=== PATIENT | female | born 1965 | race Caucasian/White ===

== ENCOUNTER 2016-09-30 16:03 | Emergency (ER) | payer SELFPAY ==
[~2016-09-30] VITALS: Ht 162.6 cm; Wt 50.0 kg
[~2016-09-30 16:03] MED LIST: AMOX/K CLAV875 M1 PO; AMOXICILLIN500 MG PO; ANXIETY; BACTRIM DS1 TAB PO; CORTISPORIN OTI10 ML AS; DEPRESSION; FLEXERIL10 MG PO; FLOXIN OTIC0.3 % OT; LORTAB 10-325 M1 TAB PO; NO; NO HOME MEDS; PAROXETINE10 MG PO; PERMETHRIN5 % EX; TORADOL OR; TRAZODONE50 MG PO
[2016-09-30 17:30] VITALS: BP 108/74
== END 2016-09-30 17:30 | disposition home or self-care (01) | DRG 607 ==
LOC: ED 16:03
DX: B85.4 Mixed pediculosis and phthiriasis (principal); F32.9 Major depressive disorder, single episode, unspecified; F41.9 Anxiety disorder, unspecified; J44.9 Chronic obstructive pulmonary disease, unspecified; F43.10 Post-traumatic stress disorder, unspecified; F17.210 Nicotine dependence, cigarettes, uncomplicated

== ENCOUNTER 2018-11-07 09:44 | Emergency (ER) | payer OTHER ==
[~2018-11-07] VITALS: Ht 162.6 cm; Wt 50.9 kg
[2018-11-07] MEDS ORDERED: TRAZODONE50 MG PO (09:58)
[2018-11-07] MEDS ORDERED: SYMBICORT1 AE1 IN (10:13)
[2018-11-07 10:48] LABS: HEMATOCRIT 44.6 % (37.0-47.0); HEMOGLOBIN 14.5 g/dl (12.0-16.0); IMMATURE GRANULOCYTES 0.3 % (0.0-5.0); MEAN CORPUSCULAR HGB 31.9 pG CALC (26.0-32.0); MEAN CORPUSCULAR HGB CONC 32.5 g/L CALC (32.0-36.0); NEUT# 10.01 thou/uL (2.00-7.15); RED BLOOD COUNT 4.55 mill/uL (4.20-5.60)
[2018-11-07 10:51] LABS: URINE BILIRUBIN - DIPSTICK NEGATIVE (NEGATIVE); URINE BLOOD DIPSTICK NEGATIVE (NEGATIVE); URINE COLOR YELLOW; URINE GLUCOSE - DIPSTICK NEGATIVE (NEGATIVE); URINE KETONE NEGATIVE (NEGATIVE); URINE LEUK ESTERASE NEGATIVE (NEGATIVE); URINE NITRITE - DIPSTICK NEGATIVE (Negative); URINE PH 5.5 (4.5-8.0); URINE PROTEIN - DIPSTICK NEGATIVE (NEG-TRACE); URINE SPECIFIC GRAVITY >=1.030; URINE UROBILINOGEN - DIPSTICK 0.2 E.U./dL (0.2)
[2018-11-07 11:09] LABS: ALBUMIN 4.3 g/dL (3.2-5.0); AMYLASE 53 u/l (30-110); ANION GAP 14 (6-22 (CALC)); BILIRUBIN, TOTAL 0.3 mg/dL (0.0-1.4); BUN 15 mg/dL (7-17); BUN/CREATININE RATIO 15 (12-20 (CALC)); CARBON DIOXIDE 26 mmol/l (22-30); CHLORIDE 108 mmol/l (95-108); GFR 58 ML/MIN (>=60 (CALC)); GFR FOR AFR.AMER. > 60 ML/MIN (>=60 (CALC)); POTASSIUM 4.1 mmol/l (3.5-5.1); SGOT/AST 23 u/l (14-36); SODIUM 144 mmol/l (137-146)
[2018-11-07 11:12] LABS: ALKALINE PHOSPHATASE 123 u/l (38-126)
[2018-11-07] MEDS ORDERED: IBUPROFEN600 MG PO (13:45)
[2018-11-07] MEDS ORDERED: AMOXICILLIN500 MG PO (13:45)
[2018-11-07 14:00] VITALS: BP 104/60
== END 2018-11-07 14:00 | disposition home or self-care (01) ==
LOC: ED 09:44
PROVIDERS: Family Medicine
DX: K04.7 Periapical abscess without sinus (principal); R10.11 Right upper quadrant pain; R11.0 Nausea; K08.89 Other specified disorders of teeth and supporting structures; F17.210 Nicotine dependence, cigarettes, uncomplicated; N13.30 Unspecified hydronephrosis

== ENCOUNTER 2022-09-29 11:15 | Emergency (ER) | payer OTHER ==
[2022-09-29] VITALS (19 sets, daily range): BP systolic 98–123; BP diastolic 61–91
[~2022-09-29] VITALS: Ht 162.6 cm; Wt 36.0 kg
[~2022-09-29 11:15] MED LIST changes: +IBUPROFEN600 MG PO; +SYMBICORT1 AE1 IN
[2022-09-29 12:07] LABS: BASO% 0.6 % (0-3); EOS% 3.6 % (0-8); HEMATOCRIT 49.3 % (37.0-47.0); HEMOGLOBIN 15.9 g/dl (12.0-16.0); IMMATURE GRANULOCYTES 0.1 % (0.0-5.0); LYMPH% 20.7 % (15-41); MEAN CORPUSCULAR HGB 31.3 pG CALC (26.0-32.0); MEAN CORPUSCULAR HGB CONC 32.3 g/dL CAL (32.0-36.0); MONO% 5.6 % (2-13); NEUT# 7.4 thou/uL (2.00-7.15); NEUT% 69.4 % (42-76); RED BLOOD COUNT 5.08 mill/uL (4.20-5.60); RED CELL DISTRI WIDTH 13.1 % (11.5-15.5)
[2022-09-29 12:44] LABS: ALBUMIN 4.1 g/dL (3.2-5.0); ALKALINE PHOSPHATASE 122 u/l (38-126); ANION GAP 14 (6-22 (CALC)); BILIRUBIN, TOTAL 0.1 mg/dL (0.02-1.3); BUN 16 mg/dL (7-17); BUN/CREATININE RATIO 20 (12-20 (CALC)); CARBON DIOXIDE 24 mmol/l (22-30); CHLORIDE 106 mmol/l (95-108); CREATININE 0.8 mg/dL (0.5-1.0); GFR FOR AFR.AMER. > 60 ML/MIN (>=60 (CALC)); GFR OTHER RACES > 60 ML/MIN (>=60 (CALC)); POTASSIUM 4.8 mmol/l (3.5-5.1); SGOT/AST 43 u/l (14-36); SODIUM 139 mmol/l (137-146)
[2022-09-29 14:37] LABS: URINE BILIRUBIN - DIPSTICK NEGATIVE (NEGATIVE); URINE BLOOD DIPSTICK NEGATIVE (NEGATIVE); URINE COLOR YELLOW; URINE GLUCOSE - DIPSTICK NEGATIVE (NEGATIVE); URINE KETONE NEGATIVE (NEGATIVE); URINE LEUK ESTERASE NEGATIVE (NEGATIVE); URINE PROTEIN - DIPSTICK NEGATIVE (NEG-TRACE); URINE SPECIFIC GRAVITY 1.025; URINE UROBILINOGEN - DIPSTICK 0.2 E.U./dL (0.2)
[2022-09-29 14:40] LABS: URINE NITRITE - DIPSTICK NEGATIVE (Negative)
[2022-09-29] MEDS ORDERED: MEDDOSEPAK PO ×2 (15:12→16:52)
[2022-09-29] MEDS ORDERED: PROAIR HFA IN ×2 (15:12→16:53)
[2022-09-29] MEDS ORDERED: ZPAK PO ×2 (15:12→16:52)
== END 2022-09-29 16:47 | disposition home or self-care (01) ==
LOC: ED 11:15
PROVIDERS: Nurse Practitioner
DX: J44.1 Chronic obstructive pulmonary disease with (acute) exacerbation (principal); F32.A Depression, unspecified; F41.9 Anxiety disorder, unspecified; F17.200 Nicotine dependence, unspecified, uncomplicated; Z20.822 Contact with and (suspected) exposure to COVID-19

== ENCOUNTER 2024-02-04 14:23 | Observation (INO) | payer OTHER ==
[2024-02-04] VITALS (24 sets, daily range): BP systolic 84–159; BP diastolic 57–103
[~2024-02-04] VITALS: Ht 162.6 cm; Wt 44.3 kg
[~2024-02-04 14:23] MED LIST changes: +MEDDOSEPAK PO; +PROAIR HFA IN; +ZPAK PO
[2024-02-04 15:39] LABS: BASO% 0.5 % (0-3); EOS% 2.9 % (0-8); HEMATOCRIT 46.5 % (37.0-47.0); HEMOGLOBIN 15.5 g/dl (12.0-16.0); IMMATURE GRANULOCYTES 0.2 % (0.0-5.0); LYMPH% 13.4 % (15-41); MEAN CELL VOLUME 94.3 fL CALC (80.0-100.0); MEAN CORPUSCULAR HGB 31.4 pG CALC (26.0-32.0); MEAN CORPUSCULAR HGB CONC 33.3 g/dL CAL (32.0-36.0); MONO% 5.3 % (2-13); NEUT# 14.27 thou/uL (2.00-7.15); NEUT% 77.7 % (42-76); RED BLOOD COUNT 4.93 mill/uL (4.20-5.60); RED CELL DISTRI WIDTH 12.7 % (11.5-15.5)
[2024-02-04 15:42] LABS: URINE BILIRUBIN - DIPSTICK Negative (NEGATIVE); URINE BLOOD DIPSTICK Negative (NEGATIVE); URINE COLOR Yellow; URINE GLUCOSE - DIPSTICK Negative (NEGATIVE); URINE KETONE Negative (NEGATIVE); URINE LEUK ESTERASE Trace (NEGATIVE); URINE NITRITE - DIPSTICK Negative (Negative); URINE PROTEIN - DIPSTICK Negative (NEG-TRACE); URINE SPECIFIC GRAVITY 1.015; URINE UROBILINOGEN - DIPSTICK 0.2 E.U./dL (0.2)
[2024-02-04 15:47] LABS: ALBUMIN 4.2 g/dL (3.2-5.0); ALKALINE PHOSPHATASE 90 u/l (38-126); ANION GAP 9 (6-22 (CALC)); BILIRUBIN, TOTAL 0.7 mg/dL (0.02-1.3); BUN 13 mg/dL (7-17); BUN/CREATININE RATIO 16 (12-20 (CALC)); CARBON DIOXIDE 24 mmol/l (22-30); CHLORIDE 108 mmol/l (95-108); CREATININE 0.8 mg/dL (0.5-1.0); ESTIMATED GFR 86 ML/MIN (>=90 (CALC)); SGOT/AST 30 u/l (14-36); SODIUM 137 mmol/l (137-146); TOTAL PROTEIN 7.3 g/dL (6.3-8.2)
[2024-02-04 15:54] LABS: D-DIMER 0.32 mg/L (0.19-0.60)
[2024-02-04 15:55] LABS: INTERNATIONAL NORMALIZED RATIO 1.2 RATIO (0.7-1.3)
[2024-02-04] MEDS ORDERED: SODIUM CHLORIDE 0.9% 1,000 ML IV ONE (16:30)
[2024-02-04] MEDS ORDERED: MAGNESIUM HYDROXIDE 30 ML UDC PO PRN (16:30)
[2024-02-04] MEDS ORDERED: ALPRAZolam 0.5 MG/TAB PO PRN (16:30)
[2024-02-04] MEDS ORDERED: SODIUM CHLORIDE 0.9% 1,000 ML IV SCH (16:30)
[2024-02-04] MEDS ORDERED: ACETAMINOPHEN 325 MG/TAB PO PRN (16:30)
[2024-02-04] MEDS ORDERED: methylPREDNISolone Sod Succ 40 MG/ML SDV IV SCH (16:31)
[2024-02-04] MEDS ORDERED: LORazepam 2 MG/ML IV ONE (16:35)
[2024-02-04] MEDS ORDERED: VENTOLIN HFA108 MCG IN (16:55)
[2024-02-04] MEDS ORDERED: AZITHROMYCIN 500 MG in SODIUM CHLORIDE 0.9% 250 ML IV SCH (17:00)
[2024-02-04] MEDS ORDERED: cefTRIAXone SODIUM 2 GM in SODIUM CHLORIDE 0.9% 100 ML IV SCH (17:00)
[2024-02-04] MEDS ORDERED: IPRATROPIUM BROMIDE 0.5 MG/2.5 ML SOL IN SCH (19:00)
[2024-02-04] MEDS ORDERED: LEVALBUTEROL HCL 1.25 MG/3 ML VIAL NEB SCH (19:00)
[2024-02-04] MEDS ORDERED: ENOXAPARIN SODIUM 40 MG/0.4 ML SYR SC SCH (21:00)
[2024-02-05] VITALS (25 sets, daily range): BP systolic 87–126; BP diastolic 58–78
[2024-02-05 06:09] LABS: BASO% 0.1 % (0-3); HEMATOCRIT 43.8 % (37.0-47.0); HEMOGLOBIN 14.5 g/dl (12.0-16.0); IMMATURE GRANULOCYTES 0.2 % (0.0-5.0); LYMPH% 7.7 % (15-41); MEAN CELL VOLUME 96.1 fL CALC (80.0-100.0); MEAN CORPUSCULAR HGB 31.8 pG CALC (26.0-32.0); MEAN CORPUSCULAR HGB CONC 33.1 g/dL CAL (32.0-36.0); MONO% 0.7 % (2-13); NEUT# 15.34 thou/uL (2.00-7.15); NEUT% 91.3 % (42-76); RED BLOOD COUNT 4.56 mill/uL (4.20-5.60); RED CELL DISTRI WIDTH 12.7 % (11.5-15.5)
[2024-02-05 06:28] LABS: BILIRUBIN, TOTAL 0.5 mg/dL (0.02-1.3); CHOLESTEROL HDL RATIO 3.4 (<4.4 (CALC)); CREATININE 0.6 mg/dL (0.5-1.0); MAGNESIUM 2.1 mg/dL (1.6-2.3); POTASSIUM 4.7 mmol/l (3.5-5.1)
[2024-02-05 06:36] LABS: ALBUMIN 3.3 g/dL (3.2-5.0)
[2024-02-05] MEDS ORDERED: hydrOXYzine HCL 25 MG/TAB PO PRN (08:15)
[2024-02-05] MEDS ORDERED: ARIPiprazole 10 MG/TAB PO SCH ×2 (09:00)
[2024-02-05] MEDS ORDERED: PARoxetine 10 MG/TAB PO SCH (09:00)
[2024-02-05] MEDS ORDERED: ARIPIPRAZOLE5 MG PO (12:06)
[2024-02-05] MEDS ORDERED: PAROXETINE10 M1 PO (12:07)
[2024-02-05] MEDS ORDERED: HYDROXYZ HCL10 MG PO (12:07)
[2024-02-05] MEDS ORDERED: KETOCONAZOLE21 TOP (12:09)
[2024-02-05] MEDS ORDERED: CLOBETASOL0.05 % TOP (12:10)
[2024-02-05] MEDS ORDERED: IPRATROPIU0.5 MG/3 M PO (12:11)
[2024-02-05] MEDS ORDERED: NICOTINE TRANSDERMAL 21 MG/PATCH TD SCH (12:30)
[2024-02-06 01:21] VITALS: BP 105/67
[2024-02-06 04:00] VITALS: BP 110/72
[2024-02-06 06:30] LABS: HEMATOCRIT 39.7 % (37.0-47.0); HEMOGLOBIN 13.2 g/dl (12.0-16.0); MEAN CELL VOLUME 96.6 fL CALC (80.0-100.0); MEAN CORPUSCULAR HGB 32.1 pG CALC (26.0-32.0); MEAN CORPUSCULAR HGB CONC 33.2 g/dL CAL (32.0-36.0); RED BLOOD COUNT 4.11 mill/uL (4.20-5.60); RED CELL DISTRI WIDTH 12.9 % (11.5-15.5)
[2024-02-06 06:50] LABS: ALBUMIN 3.2 g/dL (3.2-5.0); CREATININE 0.9 mg/dL (0.5-1.0); MAGNESIUM 2.1 mg/dL (1.6-2.3); POTASSIUM 4.6 mmol/l (3.5-5.1); TOTAL PROTEIN 5.7 g/dL (6.3-8.2)
[2024-02-06 06:51] LABS: BILIRUBIN, TOTAL 0.1 mg/dL (0.02-1.3)
[2024-02-06 08:00] VITALS: BP 116/76
[2024-02-06 12:00] VITALS: BP 125/96
[2024-02-06] MEDS ORDERED: PREDNISONE10 MG PO (12:46)
[2024-02-06] MEDS ORDERED: VIBRAMYCIN100 M2 PO (12:47)
== END 2024-02-06 14:34 | disposition home or self-care (01) ==
LOC: ED 14:23 → ED-I 14:51 → ED 14:51 → ED-I 16:13 → ED 16:25 → ED-I 16:26 → ED 18:44 → ED-I 18:44 → ICU 20:44
PROVIDERS: Family Medicine; Internal Medicine; ADMIT Student in an Organized Health Care Education/Training Program; ATTEND Student in an Organized Health Care Education/Training Program
DX: J44.1 Chronic obstructive pulmonary disease with (acute) exacerbation (principal); J96.01 Acute respiratory failure with hypoxia; E46 Unspecified protein-calorie malnutrition; F20.9 Schizophrenia, unspecified; F31.9 Bipolar disorder, unspecified; F41.9 Anxiety disorder, unspecified; F43.10 Post-traumatic stress disorder, unspecified; F17.200 Nicotine dependence, unspecified, uncomplicated; Z68.1 Body mass index [BMI] 19.9 or less, adult
CPT/HCPCS: J1650; J2060

== ENCOUNTER 2024-07-10 16:45 | Emergency (ER) | payer OTHER ==
[~2024-07-10] VITALS: Ht 162.6 cm; Wt 58.9 kg
[2024-07-10] VITALS (7 sets, daily range): BP systolic 115–136; BP diastolic 69–88
[~2024-07-10 16:45] MED LIST changes: +ARIPIPRAZOLE5 MG PO; +CLOBETASOL0.05 % TOP; +HYDROXYZ HCL10 MG PO; +IPRATROPIU0.5 MG/3 M PO; +KETOCONAZOLE21 TOP; +PAROXETINE10 M1 PO; +PREDNISONE10 MG PO; +VENTOLIN HFA108 MCG IN; +VIBRAMYCIN100 M2 PO
[2024-07-10] MEDS ORDERED: NAPROXEN 250 MG/TAB PO ONE (16:50)
[2024-07-10] MEDS ORDERED: traMADol HCL 50 MG/TAB PO ONE (16:50)
[2024-07-10] MEDS ORDERED: LORTAB 5/3255 MG PO (18:30)
[2024-07-10] MEDS ORDERED: NAPROXEN500 MG PO (18:30)
== END 2024-07-10 19:23 | disposition home or self-care (01) ==
LOC: ED 16:45
DX: S82.141A Displaced bicondylar fracture of right tibia, initial encounter for closed fracture (principal); S82.831A Other fracture of upper and lower end of right fibula, initial encounter for closed fracture; J44.9 Chronic obstructive pulmonary disease, unspecified; F17.200 Nicotine dependence, unspecified, uncomplicated; V13.4XXA Pedal cycle driver injured in collision with car, pick-up truck or van in traffic accident, initial encounter